=== PATIENT | female | born 1965 | race Caucasian/White ===

== ENCOUNTER 2018-12-31 07:21 | Inpatient (IN) | payer OTHER ==
[~2018-12-31] VITALS: Ht 152.4 cm; Wt 149.7 kg
[2018-12-31 07:23] VITALS: BP 142/93
[2018-12-31] MEDS ORDERED: SYNTHROID150 MCG PO (07:25)
[2018-12-31] MEDS ORDERED: ALLEGRA ALLERGY60 MG PO (07:26)
[2018-12-31 07:46] LABS: ABSOLUTE BASOPHILS 0.1 thou/uL (0.0-0.2); ABSOLUTE EOSINOPHILS 0.2 thou/uL (0.0-0.7); ABSOLUTE LYMPHOCYTES 2.2 thou/uL (0.8-5.3); ABSOLUTE MONOCYTES 0.5 thou/uL (0.0-1.2); ABSOLUTE NEUTROPHILS 4.9 thou/uL (1.6-8.1); HEMATOCRIT 45.5 % (37.0-47.0); HEMOGLOBIN 15.4 gm/dL (12.0-15.0); LYMPHOCYTES 27.6 %; MCHC 33.8 g/dL (28.0-37.0); MCV 91.5 fL (80.0-100.0); MONOCYTES 6.9 %; MPV 6.6 fl. (7.2-11.1); NUCLEATED RBCS 0 /100WBC; PLATELET COUNT* 319 thou/uL (150-400); POLYS 62.5 %; RBC 4.98 mil/uL (4.20-5.00); RDW-CV 13.5 % (10.5-14.5); WBC 7.9 thou/uL (4.0-11.0)
[2018-12-31 07:56] LABS: ANION GAP 7 mmol/L (7-16); BUN 11 mg/dL (7-18); CALCIUM 8.8 mg/dL (8.5-10.1); CHLORIDE 104 mmol/L (98-107); CO2 29 mmol/L (21-32); GLUCOSE 107 mg/dL (70-99); POTASSIUM 4.1 mmol/L (3.5-5.1); SODIUM 140 mmol/L (136-145)
[2018-12-31 07:57] LABS: APTT 29.2 Seconds (25.0-31.3); PROTIME 9.8 Seconds (9.20-11.50)
[2018-12-31 08:07] LABS: ALBUMIN 3.8 g/dL (3.4-5.0); ALKALINE PHOSPHATASE 70 U/L (46-116); LIPASE 80 U/L (73-393); MAGNESIUM 1.9 mg/dL (1.8-2.4); NT-PRO BRAIN NAT PEPTIDE 1488 pg/mL (<300); SGOT 28 U/L (15-37); SGPT 32 U/L (30-65); TOTAL BILIRUBIN 0.5 mg/dL (<0.1-1.0); TOTAL PROTEIN 7.4 g/dL (6.4-8.2); TROPONIN-I LEVEL <0.06 ng/mL (<0.06)
[2018-12-31 09:08] VITALS: BP 122/70
[2018-12-31 11:27] VITALS: BP 129/70
--- NOTE | 2018-12-31 12:22 | 2DMMODE ---
[place] [address] 2 D/M-MODE ECHOCARDIOGRAM Name: KELLIE RIVERA Room: [address] IN [facility]#: [id number] Admission: 12/31/18 Attend Phys: Rony Gong MD Discharge: Date of : 69 Date of Service: 12/31/18 1222 Report #: [id number] THIS REPORT FOR: //name// APPROVED REPORT Study performed: 12/31/2018 10:29:21 EXAM: Comprehensive 2D, Doppler, and color-flow Echocardiogram Patient Location: In-Patient Room #: 209 Status: routine BSA: 2.47 HR: 103 bpm BP: 122/70 mmHg Rhythm: Atrial Fibrillation Other Information Study Quality: Good Indications Atrial Fibrillation 2D Dimensions IVSd: 13.99 (7-11mm) LVOT Diam: 21.81 (18-24mm) LVDd: 45.64 mm PWd: 11.28 (7-11mm) Ascending Ao: 36.77 (22-36mm) LVDs: 30.48 (25-40mm) Aortic Root: 37.07 mm Volumes Left Atrial Volume (Systole) LA ESV Index: 29.80 mL/m2 Aortic Valve AoV Peak Pierce.: 1.12 m/s AO Peak Gr.: 5.06 mmHg LVOT Max P.71 mmHg AO Mean Gr.: 2.85 mmHg LVOT Mean P.31 mmHg LVOT Max V: 1.09 m/s AO V2 VTI: 18.65 cm LVOT Mean V: 0.70 m/s GLORIA (VTI): 3.55 cm2 LVOT V1 VTI: 17.72 cm Mitral Valve MV Decel. Time: 188.00 ms MV PHT: 54.52 ms MVA (PHT): 4.04 [place]2 [place] [address] 2 D/M-MODE ECHOCARDIOGRAM Name: KELLIE RIVERA Room: [address] IN ..#: [id number] Admission: 12/31/18 Attend Phys: Rony Gong MD Discharge: Date of : 69 Date of Service: 12/31/18 1222 Report #: [id number] TDI Medial E' Pierce.: 0.11 m/s Lateral E' Pierce.: 0.15 m/s Pulmonary Valve PV Peak Pierce.: 0.87 m/s PV Peak Gr.: 3.03 mmHg Tricuspid Valve RAP Estimate: 5.00 mmHg TR Peak Gr.: 20.85 mmHg RVSP: 25.00 mmHg PA Pressure: 25.00 mmHg Left Ventricle The left ventricle is normal size. There is normal LV segmental wall motion. Mild concentric left ventricular hypertrophy. Left ventricular systolic function is normal. LVEF is 55-60%. This study is not technically sufficient to allow evaluation of the LV diastolic function due to atrial fibrillation. Right Ventricle The right ventricle is normal size. The right ventricular systolic function is normal. Atria Left atrium is moderately dilated. The right atrium size is normal. Aortic Valve The aortic valve is normal in structure. No aortic regurgitation is present. There is no aortic valvular stenosis. Mitral Valve The mitral valve is normal in structure. Mild mitral regurgitation. No evidence of mitral valve stenosis. Tricuspid Valve The tricuspid valve is normal in structure. Trace tricuspid regurgitation. Pulmonic Valve The pulmonary valve is normal in structure. Trace pulmonic regurgitation. Great Vessels The aortic root is normal in size. IVC [place] [address] 2 D/M-MODE ECHOCARDIOGRAM Name: KELLIE RIVERA Room: [address] IN ..#: [id number] Admission: 12/31/18 Attend Phys: Rony Gong MD Discharge: Date of : 69 Date of Service: 12/31/18 1222 Report #: [id number] collapses >50% with inspiration. Pericardium There is no pericardial effusion. <Conclusion> The left ventricle is normal size. Mild concentric left ventricular hypertrophy. Left ventricular systolic function is normal. LVEF is 55-60%. There is normal LV segmental wall motion. Left atrium is moderately dilated. Mild mitral regurgitation. Trace tricuspid regurgitation. IVC is normal in size and collapses >50% with inspiration. <ELECTRONICALLY SIGNED> By: Jose Carlos Flores MD, FACC 12/31/18 122 21 21 Jose Carlos Flores MD, FACC /INF
[2018-12-31 15:34] VITALS: BP 140/76
[2018-12-31 16:52] VITALS: BP 140/76
[2018-12-31 20:37] VITALS: BP 129/72
[2019-01-01] VITALS (9 sets, daily range): BP systolic 122–152; BP diastolic 66–83
[2019-01-01 05:07] LABS: ABSOLUTE BASOPHILS 0.1 thou/uL (0.0-0.2); ABSOLUTE EOSINOPHILS 0.1 thou/uL (0.0-0.7); ABSOLUTE LYMPHOCYTES 2.3 thou/uL (0.8-5.3); ABSOLUTE MONOCYTES 0.5 thou/uL (0.0-1.2); ABSOLUTE NEUTROPHILS 4.6 thou/uL (1.6-8.1); BASOPHILS 0.9 %; EOSINOPHILS 1.9 %; HEMATOCRIT 42.9 % (37.0-47.0); HEMOGLOBIN 14.1 gm/dL (12.0-15.0); LYMPHOCYTES 30.4 %; MCH 30.4 pg (26.0-34.0); MCHC 32.8 g/dL (28.0-37.0); MCV 92.7 fL (80.0-100.0); MONOCYTES 6.5 %; MPV 6.6 fl. (7.2-11.1); NUCLEATED RBCS 0 /100WBC; PLATELET COUNT* 261 thou/uL (150-400); POLYS 60.3 %; RBC 4.62 mil/uL (4.20-5.00); RDW-CV 13.3 % (10.5-14.5); WBC 7.6 thou/uL (4.0-11.0)
[2019-01-01 05:17] LABS: ANION GAP 5 mmol/L (7-16); BUN 14 mg/dL (7-18); CALCIUM 8.8 mg/dL (8.5-10.1); CHLORIDE 105 mmol/L (98-107); CHOLESTEROL 168 mg/dL (<200); CO2 29 mmol/L (21-32); CREATININE 0.9 mg/dL (0.6-1.3); GLUCOSE 104 mg/dL (70-99); HDL CHOLESTEROL 39 mg/dL (>40); LDL CHOLESTEROL 114 mg/dL (<100); MAGNESIUM 2.2 mg/dL (1.8-2.4); POTASSIUM 4.4 mmol/L (3.5-5.1); SODIUM 139 mmol/L (136-145); TC:HDL 4.3 Ratio (Not establshd); TRIGLYCERIDE 76 mg/dL (<150); VLDL 15 mg/dL (<40)
[2019-01-01 05:27] LABS: SERUM ASSESSMENT CLEAR
--- NOTE | 2019-01-01 11:03 | EKG ---
[place] [address] ELECTROCARDIOGRAM REPORT Name: KELLIE RIVERA Room: [address] ADM IN .R.#: [id number] Admission: 12/31/18 Attend Phys: Rony Gong MD Discharge: Date of : 69 Report #: [id number] THIS REPORT FOR: //name// [facility] ED Test Date: 2018-12-31 Test Time: 07:25:39 Pat Name: KELLIE RIVERA Department: Room: [facility] Gender: F Broadloom Weaver: : 1965 Requested By: Bg Hooks Order Number: [id number] MD: Charli Escalera Measurements Intervals [place] Rate: 160 P: [place]: QRS: -12 QRSD: 80 T: 3 QT: 279 QTc: 456 Interpretive Statements Atrial fibrillation LVH by voltage Baseline wander in lead(s) V6 No previous ECG available for comparison Electronically Signed On 01-01-2019 11:02:54 CDT by Charli Escalera [email or web address] <ELECTRONICALLY SIGNED> By: Charli Escalera MD, [facility] 01/01/19 1102 D: 08/724 4 Charli Escalera MD, FACC /EPI
[2019-01-01] MEDS ORDERED: TOPAMAX50 MG PO (14:24)
[2019-01-01] MEDS ORDERED: ELIQUIS5 MG PO (14:25)
[2019-01-01] MEDS ORDERED: FLECAINIDE ACET50 M1 PO (14:25)
[2019-01-01] MEDS ORDERED: TOPROL XL50 MG PO (14:34)
--- NOTE | 2019-01-01 14:38 | CON ---
[address] [address] CONSULTATION Name: NICOLEKELLIE J Room: [address] IN ..#: [id number] Admission: 12/31/18 Attend Phys: Rony Gong MD Discharge: Date of : 69 Report #: [id number] THIS REPORT FOR: //name// CC: HARVEY Gong DATE OF SERVICE: 12/31/2018 INDICATION: Atrial fibrillation with rapid ventricular response rate. HISTORY OF PRESENT ILLNESS: The patient is a very pleasant 53-year-old white female with an episode of atrial fibrillation 8 years ago. At that time, cardiac evaluation including stress testing was unremarkable. She has had no recurrence until last evening after taking a shower. She noted her heart rate to be very fast. She was somewhat lightheaded and dizzy and near syncopal, but denies true syncope. She is not having chest pain or shortness of breath with this episode. She presented to the Emergency Room with atrial fibrillation with rapid ventricular response rate. The patient was placed on diltiazem drip after a bolus and converted to normal sinus rhythm. This a.m., she is in sinus rhythm and without complaint. PAST MEDICAL HISTORY: 1. Hypertension. 2. Paroxysmal atrial fibrillation. 3. Seasonal allergies. 4. Hypothyroidism. PAST SURGICAL HISTORY: 1. Carpal tunnel release bilaterally. 2. Meniscus repair, both knees. 3. Cholecystectomy. 4. Extracted ear drum. 5. Tonsillectomy. FAMILY HISTORY: One sister has 2 stents in her LAD. Father had coronary embolus Father's side of the family has heart failure. SOCIAL HISTORY: The patient is single. She does not smoke. She does not drink alcohol. ALLERGIES: None. CURRENT MEDICATIONS: Levothyroxine 150 mcg daily, Juany 1 tablet daily, vitamin B12 and [place] [address] CONSULTATION Name: KELLIE RIVERA Charlee Room: [address]#: [id number] Admission: 12/31/18 Attend Phys: Rony Gong MD Discharge: Date of : 69 Report #: [id number] REVIEW OF SYSTEMS: A 14-point review of systems is positive for palpitations, near syncope, hypothyroidism, seasonal allergies. She wears glasses without acute visual changes, otherwise unremarkable. PHYSICAL EXAMINATION: VITAL SIGNS: Stable. Blood pressure is 103/62, pulse is 83 and regular. GENERAL: This is a pleasant lady with no distress. HEENT: The patient is wearing glasses. Extraocular muscles intact. Mucous membranes are moist. NECK: Shows no jugular venous distention. CHEST: Reveals clear lung sullivan without wheezes or rales. CARDIOVASCULAR: Reveals regular rhythm, normal S1 and S2. I do not appreciate gallop or murmur. ABDOMEN: Reveals normal bowel sounds. The abdomen is soft, nontender. EXTREMITIES: Shows no edema. SKIN: Dry. LABORATORY DATA: A 12-lead EKG on arrival showed atrial fibrillation with rapid ventricular response rate. Telemetry currently shows a sinus rhythm. Labs were reviewed. Sodium 137, potassium 3.8, chloride 103, bicarbonate 28, BUN 12, creatinine 0.7, serum glucose 98. LFTs within normal limits. Troponins less than 0.06 on 3 separate occasions. TSH 8.749. White blood cell count 10.9, platelet count 359,000, hemoglobin 12.4. Chest x-ray, no acute process. IMPRESSION AND RECOMMENDATIONS: 1. Atrial fibrillation with rapid ventricular response. The patient has converted to sinus rhythm on diltiazem. Recommend switching to oral diltiazem and flecainide for rhythm control pending echocardiogram results. 2. Hypothyroidism. The patient appears to be somewhat hypothyroid based on TSH. We will leave adjustments to primary care physician. 3. Near syncope, likely due to hypotension in the setting of atrial fibrillation with rapid ventricular response. No further workup at this time. <ELECTRONICALLY SIGNED> By: Jose Carlos Flores MD, FACC 01/01/19 1438 1514 0104Micrakel Flores MD, FACC /nt
[2019-01-02 02:06] LABS: GLYCOHEMOGLOBIN (HGB A1C) 5.3 % (4.8-5.6)
== END 2019-01-01 18:00 | disposition home or self-care (01) | DRG 309 ==
LOC: M.ERS 07:21 → M.2W 08:24 → M.TBA-ER 08:24 → M.2W 09:06
PROVIDERS: Emergency Medicine Emergency Medical Services; ADMIT Family Medicine
DX: I48.0 Paroxysmal atrial fibrillation (principal); D68.59 Other primary thrombophilia; Z68.44 Body mass index [BMI] 60.0-69.9, adult; E03.9 Hypothyroidism, unspecified; E11.9 Type 2 diabetes mellitus without complications; E66.01 Morbid (severe) obesity due to excess calories; I95.9 Hypotension, unspecified; Z82.49 Family history of ischemic heart disease and other diseases of the circulatory system; Z90.49 Acquired absence of other specified parts of digestive tract; Z85.07 Personal history of malignant neoplasm of pancreas; Z79.899 Other long term (current) drug therapy

== ENCOUNTER → 2019-01-15 | Outpatient (CLI) | payer OTHER ==
[~2019-01-15] MED LIST: ALLEGRA ALLERGY60 MG PO; ELIQUIS5 MG PO; FLECAINIDE ACET50 M1 PO; SYNTHROID150 MCG PO; TOPAMAX50 MG PO; TOPROL XL50 MG PO
--- NOTE | 2019-01-25 12:50 | SLEEP ---
[address] [address] SLEEP STUDY REPORT Name: NICOLEKELLIE Charlee Room: [facility]#: [id number] Admission: 01/15/19 Attend Phys: Brinda Manning Discharge: Date of : 69 Report #: [id number] THIS REPORT FOR: //name// CC: Ronak Manning NP This study has been reviewed in its entirety by a board certified sleep specialist DATE OF SERVICE: 01/15/2019 REFERRED BY: Brinda Manning NP. The patient is a 53-year-old who weighs 329 pounds with a BMI of 53. The patient underwent home sleep study performed at [facility]. Total recording time was 505 minutes. During the night study, the patient was 192 obstructive apneas, 1 central apnea, no mixed apneas, and 149 hypopneas. The patient's apnea-hypopnea index was 40.6 per hour. Supine sleep was not recorded. Nocturnal oximetry study revealed an average oxygen saturation of 91% with the lowest of 67%. 90 minutes were spent in oxygen saturation less than 90% and 38 minutes with saturation of less than 85%. Mean heart rate was 58 beats per minute. IMPRESSION: 1. Severe sleep apnea-hypopnea syndrome with an apnea-hypopnea index of 40 per hour. 2. Moderate to severe nocturnal hypoxia secondary to obstructive sleep apnea. RECOMMENDATIONS: 1. The patient would benefit from in-lab CPAP titration study. Alternate treatment option would include home auto-titration study. 2. Once the patient is optimally treated with CPAP, then follow up in 4-6 weeks to assess compliance and to document clinical improvement with treatment. 3. Weight loss is strongly advised. 4. Avoid LOG PREPARER depressants. 5. Cautioned regarding driving or operating heavy machinery until symptoms of sleep apnea resolve with the use of CPAP. <ELECTRONICALLY SIGNED> By: Efren Arora MD 01/25/19 1250 1829 Gabriella Arora MD /jose alejandro
== END ==
LOC: M.SLEEPLAB 17:30
DX: G47.33 Obstructive sleep apnea (adult) (pediatric) (principal); G47.34 Idiopathic sleep related nonobstructive alveolar hypoventilation; I48.91 Unspecified atrial fibrillation; I10 Essential (primary) hypertension; E03.9 Hypothyroidism, unspecified; Z90.49 Acquired absence of other specified parts of digestive tract; Z79.899 Other long term (current) drug therapy

== ENCOUNTER 2020-03-14 13:47 | Emergency (ER) | payer OTHER ==
[~2020-03-14] VITALS: Ht 167.6 cm; Wt 139.3 kg
[2020-03-14 15:30] LABS: ABSOLUTE LYMPHOCYTES 1.3 thou/uL (0.8-5.3); ABSOLUTE MONOCYTES 0.6 thou/uL (0.0-1.2); ABSOLUTE NEUTROPHILS 4.1 thou/uL (1.6-8.1); BASOPHILS 0.2 %; EOSINOPHILS 0.2 %; HEMATOCRIT 44.5 % (37.0-47.0); MCH 30.5 pg (26.0-34.0); MCHC 33.6 g/dL (28.0-37.0); MONOCYTES 9.9 %; MPV 6.6 fl. (7.2-11.1); NUCLEATED RBCS 0 /100WBC; PLATELET COUNT* 157 thou/uL (150-400); POLYS 68.7 %; RBC 4.89 mil/uL (4.20-5.00)
[2020-03-14 15:39] LABS: CALCIUM 8.3 mg/dL (8.5-10.1); CREATININE 0.9 mg/dL (0.6-1.3); POTASSIUM 4.6 mmol/L (3.5-5.1)
[2020-03-14 15:44] LABS: ALBUMIN 3.4 g/dL (3.4-5.0); TOTAL BILIRUBIN 0.5 mg/dL (<0.1-1.0); TOTAL PROTEIN 7.3 g/dL (6.4-8.2)
[2020-03-14] MEDS ORDERED: PHENERGAN 25 MG25 M1 PO ×2 (16:38→16:39)
[2020-03-14] MEDS ORDERED: LOMOTIL TABLET1 EACH PO (16:38)
[2020-03-14] MEDS ORDERED: BENTYL 20 MG TA20 M1 PO ×2 (16:38→16:39)
[2020-03-14 16:55] VITALS: BP 130/82
--- NOTE | 2020-03-15 10:48 | EKG ---
[place] [address] ELECTROCARDIOGRAM REPORT Name: NICOLEROMEL NazarioKELLIE Charlee Room: [facility]#: [id number] Admission: 03/14/20 Attend Phys: Discharge: 03/14/20 Date of : 69 Date of Service: 03/14/20 1551 Report #: [id number] THIS REPORT FOR: //name// [facility] ED Test Date: 2020-03-14 Test Time: 15:51:48 Pat Name: KELLIE RIVERA Department: Room: Gender: Petrologist: CURT : 1965 Requested By: Patsy Hankins Order Number: [id number] MD: Ronak Gould Measurements Intervals [place] Rate: 68 P: 3 TN: 160 QRS: -22 QRSD: 99 T: 6 QT: 455 QTc: 484 Interpretive Statements Sinus rhythm Left ventricular hypertrophy Borderline prolonged QT interval Compared to ECG 12/31/2018 07:25:39 Atrial fibrillation no longer present Electronically Signed On 03-15-2020 10:47:49 CHARGE LOADER by Ronak Gould [email or web address] <ELECTRONICALLY SIGNED> By: Ronak Gould MD, FACC 03/15/20 1047 1551 1551 Ronak Gould MD, [facility] /EPI
== END 2020-03-14 16:55 | disposition home or self-care (01) ==
LOC: M.ERS 13:47
PROVIDERS: Nurse Practitioner Family
DX: U07.1 COVID-19 (principal); R19.7 Diarrhea, unspecified; I48.91 Unspecified atrial fibrillation; E03.9 Hypothyroidism, unspecified

== ENCOUNTER 2020-03-19 10:05 | Inpatient (IN) | payer OTHER ==
[~2020-03-19] VITALS: Ht 167.6 cm; Wt 147.0 kg
[~2020-03-19 10:05] MED LIST changes: +BENTYL 20 MG TA20 M1 PO; +LOMOTIL TABLET1 EACH PO; +PHENERGAN 25 MG25 M1 PO
[2020-03-19 10:18] VITALS: BP 98/54
[2020-03-19 11:45] LABS: ABSOLUTE EOSINOPHILS 0.2 thou/uL (0.0-0.7); ABSOLUTE LYMPHOCYTES 1.1 thou/uL (0.8-5.3); ABSOLUTE MONOCYTES 0.6 thou/uL (0.0-1.2); ABSOLUTE NEUTROPHILS 5.3 thou/uL (1.6-8.1); BASOPHILS 0.3 %; EOSINOPHILS 2.3 %; HEMATOCRIT 43.8 % (37.0-47.0); HEMOGLOBIN 14.8 gm/dL (12.0-15.0); LYMPHOCYTES 14.7 %; MCH 30.4 pg (26.0-34.0); MCHC 33.8 g/dL (28.0-37.0); MONOCYTES 8.8 %; MPV 6.8 fl. (7.2-11.1); NUCLEATED RBCS 0 /100WBC; PLATELET COUNT* 280 thou/uL (150-400); POLYS 73.9 %; RBC 4.87 mil/uL (4.20-5.00); RDW-CV 12.6 % (10.5-14.5); WBC 7.2 thou/uL (4.0-11.0)
[2020-03-19 11:55] LABS: CALCIUM 8.1 mg/dL (8.5-10.1)
[2020-03-19 12:00] LABS: TOTAL BILIRUBIN 0.7 mg/dL (<0.1-1.0); TOTAL PROTEIN 6.8 g/dL (6.4-8.2)
[2020-03-19 14:14] VITALS: BP 92/56
[2020-03-19 14:34] VITALS: BP 101/63
[2020-03-19] MEDS ORDERED: CARVEDILOL25 MG PO (17:08)
[2020-03-19] MEDS ORDERED: VITAMIN B-121000 MC2 PO (17:09)
[2020-03-19] MEDS ORDERED: VITAMIN D310 MC1 PO (17:09)
[2020-03-19 23:45] VITALS: BP 90/51
[2020-03-20 04:36] VITALS: BP 100/45
[2020-03-20 05:04] LABS: ABSOLUTE EOSINOPHILS 0.4 thou/uL (0.0-0.7); ABSOLUTE LYMPHOCYTES 1.8 thou/uL (0.8-5.3); ABSOLUTE MONOCYTES 0.6 thou/uL (0.0-1.2); ABSOLUTE NEUTROPHILS 4.3 thou/uL (1.6-8.1); BASOPHILS 0.4 %; HEMATOCRIT 40.3 % (37.0-47.0); HEMOGLOBIN 13.4 gm/dL (12.0-15.0); LYMPHOCYTES 25.9 %; MCH 30.3 pg (26.0-34.0); MCHC 33.2 g/dL (28.0-37.0); MCV 91.1 fL (80.0-100.0); MONOCYTES 8.4 %; MPV 6.8 fl. (7.2-11.1); NUCLEATED RBCS 0 /100WBC; PLATELET COUNT* 246 thou/uL (150-400); POLYS 60.3 %; RBC 4.42 mil/uL (4.20-5.00); RDW-CV 12.8 % (10.5-14.5); WBC 7.1 thou/uL (4.0-11.0)
[2020-03-20 05:31] LABS: CALCIUM 7.6 mg/dL (8.5-10.1); CREATININE 0.8 mg/dL (0.6-1.3); POTASSIUM 3.5 mmol/L (3.5-5.1)
[2020-03-20 07:50] VITALS: BP 135/54
--- NOTE | 2020-03-20 12:17 | EKG ---
[place] [address] ELECTROCARDIOGRAM REPORT Name: KELLIE RIVERA Room: [address] ADM IN ..#: [id number] Admission: 03/19/20 Attend Phys: Kalin Sousa, Discharge: Date of : 69 Date of Service: 03/19/20 1109 Report #: [id number] THIS REPORT FOR: //name// [facility] ED Test Date: 2020-03-19 Test Time: 11:09:36 Pat Name: KELLIE RIVERA Department: Room: [facility] Gender: F Scallop Cutter: : 1965 Requested By: Bg Hooks Order Number: [id number] MD: Charli Escalera Measurements Intervals [place] Rate: 131 P: [place]: QRS: -13 QRSD: 88 T: 12 QT: 332 QTc: 491 Interpretive Statements Atrial fibrillation Left ventricular hypertrophy Borderline prolonged QT interval Compared to ECG 03/14/2020 15:51:48 Sinus rhythm no longer present Electronically Signed On 03-20-2020 12:17:04 SAND PLANT ATTENDANT by Charli Escalera [email or web address] <ELECTRONICALLY SIGNED> By: Charli Escalera MD, FACC 03/20/20 1217 1109 1109 Charli Escalera MD, FAC /EPI
[2020-03-20 12:45] VITALS: BP 110/71
[2020-03-20 17:04] VITALS: BP 133/62
[2020-03-21] VITALS (7 sets, daily range): BP systolic 122–152; BP diastolic 56–77
[2020-03-21 05:56] LABS: ABSOLUTE LYMPHOCYTES 0.9 thou/uL (0.8-5.3); ABSOLUTE MONOCYTES 0.5 thou/uL (0.0-1.2); ABSOLUTE NEUTROPHILS 7.1 thou/uL (1.6-8.1); BASOPHILS 0.2 %; HEMATOCRIT 39.2 % (37.0-47.0); HEMOGLOBIN 12.9 gm/dL (12.0-15.0); LYMPHOCYTES 10.9 %; MCH 29.9 pg (26.0-34.0); MCHC 32.9 g/dL (28.0-37.0); MCV 91.1 fL (80.0-100.0); MONOCYTES 5.5 %; MPV 6.9 fl. (7.2-11.1); NUCLEATED RBCS 0 /100WBC; PLATELET COUNT* 281 thou/uL (150-400); POLYS 83.4 %; RDW-CV 12.5 % (10.5-14.5); WBC 8.5 thou/uL (4.0-11.0)
[2020-03-21 06:02] LABS: CALCIUM 7.9 mg/dL (8.5-10.1); CREATININE 0.6 mg/dL (0.6-1.3); POTASSIUM 4.1 mmol/L (3.5-5.1)
--- NOTE | 2020-03-21 10:51 | EKG ---
[place] [address] ELECTROCARDIOGRAM REPORT Name: NICOLEROMEL NazarioKELLIE Charlee Room: [address] ADM IN .R.#: [id number] Admission: 03/19/20 Attend Phys: Kalin Sousa, Discharge: Date of : 69 Date of Service: 03/21/20 0853 Report #: [id number] THIS REPORT FOR: //name// [facility] Test Date: 2020-03-21 Test Time: 08:53:09 Pat Name: KELLIE RIVERA Department: Room: [address] Gender: F Raw Mill Operator: : 1965 Requested By: Charli Escalera Order Number: [id number] Reading MD: Jose Carlos Flores Measurements Intervals [place] Rate: 73 P: 22 [place]: 172 QRS: -18 QRSD: 105 T: -15 QT: 389 QTc: 429 Interpretive Statements Sinus rhythm Left ventricular hypertrophy Early transition Nonspecific T abnormalities, diffuse leads Compared to ECG 03/19/2020 11:09:36 T-wave abnormality now present Atrial fibrillation no longer present Electronically Signed On 03-21-2020 10:51:17 PATIENT CENTERED CARE SPECIALIST by Jose Carlos Flores [email or web address] <ELECTRONICALLY SIGNED> By: Jose Carlos Flores MD, FACC 03/21/20 1051 0853 0853 Jose Carlos Flores MD, FAC /EPI
--- NOTE | 2020-03-21 13:47 | CON ---
[address] [address] CONSULTATION Name: KELLIE RIVERA Room: [address] IN .R.#: [id number] Admission: 03/19/20 Attend Phys: Kalin Sousa MD Discharge: Date of : 69 Report #: [id number] THIS REPORT FOR: //name// cc: Ronak Murray John E. DO ~ DATE OF SERVICE: 03/20/2020 CARDIOLOGY CONSULTATION HISTORY OF PRESENT ILLNESS: The patient is a 54-year-old single white female who I was asked to see in the hospital today after she was noted to be in atrial fibrillation. The patient initially presented about a year ago with atrial fibrillation. She was seen by my partner, Dr. Jose Carlos Flores. She converted to sinus rhythm on her own. He placed her on flecainide and metoprolol. She was never anticoagulated. He actually saw her in Cardiology Clinic a month ago and her blood pressure is noted to be elevated. Dr. Flores switched her from metoprolol to carvedilol. She has done well since that time. However, she notes that about 2 weeks ago, she had loose stools and then lost her sense of smell. She apparently was tested for COVID-19 and was positive. She has been self-isolating. However, 2 days ago, she felt lightheaded and felt her heart racing. She was brought to the Emergency Room and found to be in atrial fibrillation. She is admitted to [facility] yesterday. She was placed on intravenous diltiazem and developed low blood pressure. The diltiazem was discontinued. I was asked to see her for further evaluation and treatment. She denies recent chest pain, increased shortness of breath, edema, syncope. PAST MEDICAL HISTORY: She has had carpal tunnel release, cholecystectomy, knee surgery, tonsillectomy, high blood pressure. No history of hyperlipidemia and diabetes. CURRENT MEDICATIONS: Include carvedilol, Juany, flecainide, Synthroid. ALLERGIES: She has no known drug allergies. FAMILY HISTORY: Her sister had stents placed in her heart. SOCIAL HISTORY: She is single, never been , no children, lives in [place] by herself. She works in a warehouse. No smoking. No alcohol abuse, she no longer drinks caffeine. No illicit drug use. REVIEW OF SYSTEMS: She is overweight, being 5 feet 6 inches, weighing 320 pounds. She apparently does snore at night and is scheduled for sleep study. No history of stroke, asthma, liver disease, kidney disease, cancer, psychiatric illness, chronic skin condition. PHYSICAL EXAMINATION: [place] [address] CONSULTATION Name: KELLIE RIVERA Room: [address] IN ..#: [id number] Admission: 03/19/20 Attend Phys: Kalin Sousa MD Discharge: Date of : 69 Report #: [id number] GENERAL: Revealed a middle-aged female lying in bed. She appeared in no distress. VITAL SIGNS: She has blood pressure 120/60, pulse is 100 and irregular. She is afebrile. HEENT: She was anicteric. Conjunctivae are pink. Mucous membranes moist. NECK: Veins are nondistended. CHEST: Clear to auscultation. CARDIOVASCULAR: Irregular, tachycardia. No significant murmur. ABDOMEN: Obese. EXTREMITIES: Had trace edema. SKIN: Cool and dry. NEUROLOGIC: Nonfocal. Her ECG on admission yesterday showed atrial fibrillation with increased ventricular response rate. The patient had an echocardiogram done in 12/2018 that showed ejection fraction of 60%, left ventricular hypertrophy, left atrial enlargement, mild mitral regurgitation. She actually had a nuclear stress test performed a year ago here at [facility] using Lexiscan that showed ejection fraction of 76% with no evidence of ischemia. She had a portable chest x-ray last night that showed normal heart size, clear lung sullivan, infiltrate in the left lower lobe. LABORATORY WORK: Sodium 143, potassium 3.5, creatinine 0.8. Liver function studies were normal. Her TSH a year ago was 2.1, T4 of 1.2. White blood cell count 7.1, hemoglobin 13.4. IMPRESSION AND RECOMMENDATIONS: 1. Paroxysmal atrial fibrillation. At this time, I would aim for rate control. I would recommend discontinuing flecainide. She has a CHADS-VASc score of 2. I would recommend starting Eliquis. In addition to carvedilol, I would recommend adding digoxin to slow ventricular response rate. 2. Pneumonia. 3. Recent testing for COVID-19 that was positive. 4. Obesity. 5. Possible sleep apnea. <ELECTRONICALLY SIGNED> By: Charli Escalera MD, FACC 03/21/20 1347 0909 [id number] Escalera MD, FACC /nt
[2020-03-22 04:00] VITALS: BP 146/69
[2020-03-22 07:13] LABS: ABSOLUTE LYMPHOCYTES 1.4 thou/uL (0.8-5.3); ABSOLUTE MONOCYTES 0.7 thou/uL (0.0-1.2); ABSOLUTE NEUTROPHILS 10.6 thou/uL (1.6-8.1); BASOPHILS 0.1 %; HEMATOCRIT 39.3 % (37.0-47.0); HEMOGLOBIN 12.9 gm/dL (12.0-15.0); LYMPHOCYTES 10.7 %; MCH 29.9 pg (26.0-34.0); MCHC 32.8 g/dL (28.0-37.0); MCV 91.1 fL (80.0-100.0); MONOCYTES 5.7 %; MPV 6.7 fl. (7.2-11.1); NUCLEATED RBCS 0 /100WBC; PLATELET COUNT* 331 thou/uL (150-400); POLYS 83.5 %; RBC 4.31 mil/uL (4.20-5.00); RDW-CV 12.4 % (10.5-14.5); WBC 12.8 thou/uL (4.0-11.0)
[2020-03-22 07:15] LABS: CREATININE 0.6 mg/dL (0.6-1.3); POTASSIUM 3.8 mmol/L (3.5-5.1)
[2020-03-22 07:35] VITALS: BP 143/79
[2020-03-22 09:30] VITALS: BP 143/79
--- NOTE | 2020-03-22 09:44 | EKG ---
[place] [address] ELECTROCARDIOGRAM REPORT Name: ROMEL RIVERAELA Charlee Room: [address] ADM IN .R.#: [id number] Admission: 03/19/20 Attend Phys: Kalin Sousa, Discharge: Date of : 69 Date of Service: 03/22/20 0841 Report #: [id number] THIS REPORT FOR: //name// [facility] Test Date: 2020-03-22 Test Time: 08:41:03 Pat Name: KELLIE RIVERA Department: Room: [address] Gender: F Clinical Neuropsychologist: : 1965 Requested By: Charli Escalera Order Number: [id number] Susanne MD: Charli Escalera Measurements Intervals [place] Rate: 65 P: 43 [place]: 172 QRS: -25 QRSD: 116 T: QT: 431 QTc: 449 Interpretive Statements Sinus rhythm Left ventricular hypertrophy Nonspecific T abnormalities, diffuse leads Compared to ECG 03/21/2020 08:53:09 T-wave abnormality still present Electronically Signed On 03-22-2020 9:44:37 ELEVATOR CONDUCTOR by Charli Escalera [email or web address] <ELECTRONICALLY SIGNED> By: Charli Escalera MD, FACC 03/22/20 0944 0 Charli Escalera MD, [facility] /EPI
[2020-03-22] MEDS ORDERED: ELIQUIS5 MG PO (09:59)
[2020-03-22] MEDS ORDERED: FLECAINIDE ACET50 M1 PO (09:59)
[2020-03-22] MEDS ORDERED: DOXYCYCLINE 10100 MG PO (09:59)
[2020-03-22] MEDS ORDERED: PROTONIX40 M2 PO (10:00)
[2020-03-22] MEDS ORDERED: DEXAMETHASONE1 MG PO (10:00)
[2020-03-22 12:11] VITALS: BP 137/78
[2020-03-22 12:34] VITALS: BP 143/79
== END 2020-03-22 12:36 | disposition home or self-care (01) | DRG 177 ==
LOC: M.ERS 10:05 → M.ORTHSURG 12:49 → M.TBA-ER 12:49 → M.ORTHSURG 14:07
PROVIDERS: Emergency Medicine Emergency Medical Services; ADMIT Internal Medicine; ATTEND Internal Medicine
PROC: B54NZZA Ultrasonography of Left Upper Extremity Veins, Guidance (ICD-10-PCS; principal; 2020-03-20)
PROC: 05HF33Z Insertion of Infusion Device into Left Cephalic Vein, Percutaneous Approach (ICD-10-PCS; principal; 2020-03-20)
DX: U07.1 COVID-19 (principal); J12.89 Other viral pneumonia; Z68.43 Body mass index [BMI] 50.0-59.9, adult; I48.20 Chronic atrial fibrillation, unspecified; R65.10 Systemic inflammatory response syndrome (SIRS) of non-infectious origin without acute organ dysfunction; E66.01 Morbid (severe) obesity due to excess calories; I10 Essential (primary) hypertension; I48.0 Paroxysmal atrial fibrillation; E86.0 Dehydration; E03.9 Hypothyroidism, unspecified; G47.33 Obstructive sleep apnea (adult) (pediatric); Z79.899 Other long term (current) drug therapy; Z90.49 Acquired absence of other specified parts of digestive tract

== ENCOUNTER → 2020-10-11 | Outpatient (CLI) | payer OTHER ==
[~2020-10-11] MED LIST changes: +CARVEDILOL25 MG PO; +DEXAMETHASONE1 MG PO; +DOXYCYCLINE 10100 MG PO; +PROTONIX40 M2 PO; +VITAMIN B-121000 MC2 PO; +VITAMIN D310 MC1 PO
--- NOTE | 2020-10-11 12:16 | 2DMMODE ---
[place] [address] 2 D/M-MODE ECHOCARDIOGRAM Name: NICOLEKELLIE Charlee Room: [facility]#: [id number] Admission: 10/11/20 Attend Phys: Brinda Manning RN Discharge: Date of : 69 Date of Service: 10/11/20 1216 Report #: [id number] THIS REPORT FOR: cc: Abram Lion MD, Tuongvan T. MD Holkins, John M. MD [facility] ~ APPROVED REPORT Study performed: 10/11/2020 09:42:07 EXAM: Comprehensive 2D, Doppler, and color-flow Echocardiogram Patient Location: Out-Patient BSA: 2.52 HR: 68 bpm BP: 118/64 mmHg Other Information Study Quality: Good Indications Dyspnea 2D Dimensions IVSd: 12.09 (7-11mm) LVOT Diam: 20.66 (18-24mm) LVDd: 50.20 mm PWd: 9.63 (7-11mm) Ascending Ao: 32.29 (22-36mm) LVDs: 30.53 (25-40mm) Aortic Root: 28.28 mm Volumes Left Atrial Volume (Systole) LA ESV Index: 20.80 mL/m2 Aortic Valve AoV Peak Pierce.: 1.11 m/s AO Peak Gr.: 4.89 mmHg LVOT Max P.27 mmHg AO Mean Gr.: 2.65 mmHg LVOT Mean P.04 mmHg LVOT Max V: 1.03 m/s AO V2 VTI: 27.10 cm LVOT Mean V: 0.65 m/s GLORIA (VTI): 3.04 cm2 LVOT V1 VTI: 24.57 cm Mitral Valve E/A Ratio: 1.22 [place] [address] 2 D/M-MODE ECHOCARDIOGRAM Name: KELLIE RIVERA Room: [facility]#: [id number] Admission: 10/11/20 Attend Phys: Brinda Manning RN Discharge: Date of : 69 Date of Service: 10/11/20 1216 Report #: [id number] MV Decel. Time: 196.83 ms MV E Max Pierce.: 0.92 m/s MV PHT: 57.08 ms MVA (PHT): 3.85 cm2 TDI E/Lateral E': 10.22 E/Medial E': 11.50 Medial E' Pierce.: 0.08 m/s Lateral E' Pierce.: 0.09 m/s Pulmonary Valve PV Peak Pierce.: 0.80 m/s PV Peak Gr.: 2.56 mmHg Tricuspid Valve RAP Estimate: 5.00 mmHg TR Peak Gr.: 16.53 mmHg RVSP: 21.53 mmHg PA Pressure: 21.53 mmHg Left Ventricle The left ventricle is normal size. There is normal LV segmental wall motion. There is normal left ventricular wall thickness. Left ventricular systolic function is normal. The left ventricular ejection fraction is within the normal range. LVEF is 55-60%. The left ventricular diastolic function is normal. Right Ventricle The right ventricle is normal size. The right ventricular systolic function is normal. Atria The left atrium size is normal. The right atrium size is normal. Aortic Valve The aortic valve is normal in structure. No aortic regurgitation is present. There is no aortic valvular stenosis. Mitral Valve The mitral valve is normal in structure. Mild mitral regurgitation. No evidence of mitral valve stenosis. Tricuspid Valve The tricuspid valve is normal in structure. Trace to mild tricuspid regurgitation[place] [address] 2 D/M-MODE ECHOCARDIOGRAM Name: KELLIE RIVERA Room: [facility]#: [id number] Admission: 10/11/20 Attend Phys: Brinda Manning RN Discharge: Date of : 69 Date of Service: 10/11/20 1216 Report #: [id number] The pulmonary valve is normal in structure. There is no pulmonic valvular regurgitation. Great Vessels The aortic root is normal in size. IVC is normal in size and collapses >50% with inspiration. Pericardium There is no pericardial effusion. <Conclusion> The left ventricle is normal size. There is normal left ventricular wall thickness. Left ventricular systolic function is normal. The left ventricular ejection fraction is within the normal range. LVEF is 55-60%. The left ventricular diastolic function is normal. The right ventricle is normal size. The left atrium size is normal. The aortic valve is normal in structure. The mitral valve is normal in structure. Mild mitral regurgitation. The tricuspid valve is normal in structure. There is no pericardial effusion. There is normal LV segmental wall motion. <ELECTRONICALLY SIGNED> By: Ronak Gould MD, FACC 10/11/20 1216 121 121 Ronak Gould MD, FACC /INF
== END ==
LOC: M.CRD 09:48
PROVIDERS: ATTEND Registered Nurse
DX: I08.1 Rheumatic disorders of both mitral and tricuspid valves (principal); R06.02 Shortness of breath; I48.0 Paroxysmal atrial fibrillation; I10 Essential (primary) hypertension; G47.33 Obstructive sleep apnea (adult) (pediatric); E78.5 Hyperlipidemia, unspecified; Z86.16 Personal history of COVID-19; R07.9 Chest pain, unspecified; E66.9 Obesity, unspecified; R06.00 Dyspnea, unspecified

== ENCOUNTER → 2020-11-30 | Outpatient (CLI) | payer OTHER ==
[2020-11-30 09:43] LABS: CALCIUM 8.7 mg/dL (8.5-10.1); CREATININE 0.9 mg/dL (0.6-1.3); POTASSIUM 4.6 mmol/L (3.5-5.1)
== END ==
LOC: M.LAB 09:03
PROVIDERS: ATTEND Registered Nurse
DX: I10 Essential (primary) hypertension (principal)

== ENCOUNTER → 2021-03-01 | Outpatient (CLI) | payer OTHER ==
[2021-03-01 11:39] LABS: ALBUMIN 3.5 g/dL (3.4-5.0); ALKALINE PHOSPHATASE 54 U/L (46-116); CHOLESTEROL 125 mg/dL (<200); DIRECT BILIRUBIN 0.1 mg/dL (<0.1-0.3); HDL CHOLESTEROL 44 mg/dL (>40); LDL CHOLESTEROL 62 mg/dL (<100); SERUM ASSESSMENT Clear; SGOT 25 U/L (15-37); SGPT 26 U/L (30-65); TC:HDL 2.8 Ratio (Not establshd); TOTAL BILIRUBIN 0.5 mg/dL (<0.1-1.0); TOTAL PROTEIN 7.1 g/dL (6.4-8.2); TRIGLYCERIDE 95 mg/dL (<150); VLDL 19 mg/dL (<40)
== END ==
LOC: M.LAB 11:07
PROVIDERS: ATTEND Internal Medicine Cardiovascular Disease
DX: E78.2 Mixed hyperlipidemia (principal); I10 Essential (primary) hypertension; I25.10 Atherosclerotic heart disease of native coronary artery without angina pectoris

== ENCOUNTER → 2021-03-21 | Day surgery (SDC) | payer OTHER ==
[~2021-03-21] MED LIST changes: +DYRENIUM50 MG PO; +ZETIA10 MG PO
--- NOTE | ~2021-03-21 | PROC ---
[address] [address] PROCEDURE REPORT Name: KELLIE RIVERA Room: [facility].#: [id number] Admission: 03/21/21 Attend Phys: Compa Benitez DO Discharge: Date of : 69 Report #: [id number] THIS REPORT FOR: cc: Abram Lion MD, Tuongvan T. MD [facility],Medical Records Staff ~ For Gi report, please see the Provation report in Perceptive 7 content. By: 1220Medical Records Staff [facility] /MANJULA
[2021-03-21 09:15] LABS: HEMATOCRIT 41.4 % (37.0-47.0); MCH 30.2 pg (26.0-34.0); MCHC 33.7 g/dL (28.0-37.0); MCV 89.5 fL (80.0-100.0); MPV 6.5 fl. (7.2-11.1); RBC 4.62 mil/uL (4.20-5.00); RDW-CV 13.1 % (10.5-14.5); WBC 7.8 thou/uL (4.0-11.0)
[2021-03-21 09:35] LABS: CALCIUM 8.7 mg/dL (8.5-10.1); CREATININE 1.1 mg/dL (0.6-1.3); POTASSIUM 3.3 mmol/L (3.5-5.1)
--- NOTE | 2021-03-23 18:07 | PATH ---
[address] [address] PATHOLOGY RPT PROCEDURE Name: JANETTE HANNAH Room: [facility]..#: [id number] Admission: 03/21/21 Date of : 69 Discharge: Report #: [id number] Path Case #: [id number] [facility] Accession Number: [id number] . 01 Material submitted: . PART A: small bowel - SMALL BOWEL BIOPSY FPR CHRONIC DIARRHEA PART B: colon - RANDOM COLON BIOPSY . 01 Clinical history: . EGD AND COLONOSCOPY EPIGASTRIC PAIN, DYSPHAGIA, DIARRHEA, CHANGE IN BOWEL HABITS . 02 Diagnosis: A. Small bowel: - Small bowel mucosa without significant pathologic alteration. . B. Large bowel "random colon", biopsy: - Large bowel mucosa with focally prominent intramucosal lymphoid aggregates. - Negative for active inflammation, crypt architectural distortion, features of microscopic colitis, dysplasia, and malignancy. (MLK:charbel; 03/23/2021) QMS 03/23/2021 1721 Local . 02 Electronically signed: . Moy Blunt MD, Pathologist NPI- [id number] . 01 Gross description: . A. The specimen is received in formalin, labeled "Janette Hannah, small bowel biopsy (chronic diarrhea)". Received are 3 segments of pale roy tissue ranging in size from 0.3 to 0.4 cm in maximum dimensions. The specimen is submitted entirely in cassette A1. . B. The specimen is received in formalin, labeled "Janette Hannah, random colon biopsy". Received are multiple segments of pale roy tissue ranging in size from 0.2 cm to 0.7 cm in maximum dimensions. The specimen is submitted entirely in cassette B1.([facility]; 03/22/2021) [facility] 03/22/2021 1108 Local . 02 Pathologist provided ICD-10: R10.13, R13.10, R19.7, R19.4 . 02 CPT . 700466, [id number] Specimen Comment: A courtesy copy of this report has been sent to [phone] Specimen Comment: [phone] [place] [address] PATHOLOGY RPT PROCEDURE Name: JANETTE HANNAH Room: [facility]#: [id number] Admission: 03/21/21 Date of : 69 Discharge: Report #: [id number] Path Case #: [id number] Specimen Comment: Report sent to / DR ANDERSON Performed at: 01 [facility] [address] [id number] MD Robinson Gusman MD Phone: [phone] Performed at: 02 [facility] [address] [place] [id number] MD Clive Vital MD Phone: [phone]
== END | disposition home or self-care (01) ==
LOC: M.SUR 06:52
PROVIDERS: ATTEND Internal Medicine Gastroenterology
DX: R10.84 Generalized abdominal pain (principal); K52.9 Noninfective gastroenteritis and colitis, unspecified; K64.4 Residual hemorrhoidal skin tags; K44.9 Diaphragmatic hernia without obstruction or gangrene; I48.91 Unspecified atrial fibrillation; I10 Essential (primary) hypertension; Z98.890 Other specified postprocedural states; Z79.899 Other long term (current) drug therapy; Z79.01 Long term (current) use of anticoagulants; Z20.822 Contact with and (suspected) exposure to COVID-19

== ENCOUNTER → 2021-04-16 | Outpatient (CLI) | payer OTHER | LOC: M.LAB 10:29 | PROVIDERS: ATTEND Internal Medicine | DX: G93.3 Postviral and related fatigue syndromes (principal); Z79.899 Other long term (current) drug therapy ==